=== PATIENT | male | born 1970 | race Caucasian/White ===

== ENCOUNTER 2019-01-25 17:20 | Emergency (ER) | payer OTHER ==
[2019-01-25 17:25] VITALS: BP 142/101
[2019-01-25] MEDS ORDERED: methylPREDNIS SUCC 125 MG/2ML IVP ONE (17:40)
[2019-01-25] MEDS ORDERED: FAMOTIDINE(*) 20MG/50ML PREMIX 50 ML IVPB ONE (17:40)
[2019-01-25] MEDS ORDERED: EPINEPHrine 0.3 MG SYR IM ONLY ONE (17:40)
[2019-01-25] MEDS ORDERED: diphenhydrAMINE 50 MG/ML VIAL IVP ONE (17:40)
[2019-01-25] MEDS ORDERED: NS(*) 0.9% 1000 ML BAG 1,000 ML IV ONE (17:40)
--- NOTE | 2019-01-25 18:26 | ER Report ---
History and Physical Time Seen By MD: 17:49 Hx. of Stated Complaint: PATIENT HAS THROAT AND TONGUE. PATIENT HAS SEVERE ALLERGY TO NUTS AND WAS EXPOSED TO CASHEWS AT A RESTUARANT. EPI PEN USED UPON ARRIVAL (WINDYLOLI Ramirez ) HPI/ROS CHIEF COMPLAINT: allergic reaction. HISTORY OF PRESENT ILLNESS: Pt here for nephews graduation. PT was at a green party at [employer] and did not realize that the dip was made out of cashew nuts. Pt is allergic to nuts. Immediately after have some pt began with throat tightening. Family drove pt to ED. Pt denies sob. Pt has thickened voice and states his throat feels tight and tongue feels large. Pt does not own an epi pen REVIEW OF SYSTEMS: Constitutional: No fever, no chills. Eyes: No discharge. ENT: + swelling to throat and tongue Cardiovascular: No chest pain, no palpitations. Respiratory: No cough, no shortness of breath. Gastrointestinal: No abdominal pain, no vomiting. Genitourinary: No hematuria. Musculoskeletal: No back pain. Skin: No rashes. Neurological: No headache. (WINDYLOLI Ramirez DO) Allergies: Coded Allergies: Penicillins (Verified Allergy, Severe, ANAPHALAXIS , 01/25/19) nut - unspecified (Verified Allergy, Severe, ANAPHALAXIS , 01/25/19) Home Meds Active Scripts Epinephrine (EPIPEN 2-SYBIL) 0.3 Mg/0.3 Ml Pen.injctr, 0.3 MG IM PRN PRN for ALLERGY SYMPTOMS, #1 AMRIT Prov:LOLI TEMPLE V DO 01/25/19 Prednisone (PREDNISONE) 20 Mg Tablet, 40 MG PO BID for 2 Days, #8 TAB Prov:LOLI TEMPLE V DO 01/25/19 Past Medical/Surgical History Pmhx: htn (WINDYLOLI Ashley DO) Reviewed Nurses Notes: Yes (LOLI TEMPLE DO) Hx Smoking: Yes Hx Substance Use Disorder: No Hx Alcohol Use: Yes (occasional) (WINDYLOLI Ashley DO) Constitutional Vital Sign - Last 24 Hours 01/25/19 01/25/19 01/25/19 01/25/19 17:23 17:25 17:35 17:50 Pulse 101 95 81 Resp 16 16 15 B/P (MAP) 143/104 (117) 142/101 Pulse Ox 93 93 93 O2 Delivery Room Air 01/25/19 01/25/19 01/25/19 01/25/19 18:05 18:20 18:35 19:05 Pulse 81 80 85 84 Resp 24 21 0 21 Pulse Ox 94 93 93 93 01/25/19 01/25/19 01/25/19 01/25/19 19:20 19:35 19:50 20:05 Pulse 78 91 81 79 Resp 14 31 16 21 Pulse Ox 91 93 93 93 01/25/19 01/25/19 01/25/19 01/25/19 20:20 20:35 20:40 20:55 Pulse 82 84 81 86 Resp 49 13 9 16 Pulse Ox 90 93 92 91 01/25/19 21:10 Resp 37 Pulse Ox 90 Intake and Output 01/25/19 01/25/19 01/26/19 15:00 23:00 07:00 Intake Total 1050 ml Balance 1050 ml (LIVE ROSENTHAL MD) Physical Exam General Appearance: The patient is alert, pt is able to talk but with a "thick" voice Eyes: Pupils equal and round no pallor or injection, EOMI ENT: + glossy swollen uvula that is midine, + enlarged tongue, mallinpatti 3, Mucous membranes are moist, TM are nl b/l Respiratory: There are no retractions, lungs are clear to auscultation no wheezing Cardiovascular: Regular rate and rhythm. pulses are equal and symmetrical Gastrointestinal: Abdomen is soft and non tender, no masses, bowel sounds normal, no guarding, no rigidity or rebound Neurological: Cranial nerves II-XII grossly intact, no sensory or motor loss Skin: Warm and dry, no rashes. Musculoskeletal: Neck is supple non tender, no vertebral tenderness Extremities are nontender, nonswollen and have full range of motion. DIFFERENTIAL DIAGNOSIS: After history and physical exam differential diagnosis was considered for allergic reaction (LOLI TEMPLE DO) Medical Decision Making ED Course/Re-evaluation Clinical Indication for ER IV: IV Access ED Course Epi, solumedrol, benadryl, pepcid and iv fluids started immediatley on arrival. 01/25/2019 6:30:53 pm Pt signed out to dr. Rosenthal. Decision to Disposition Date: January 25, 2019 (LOLI TEMPLE DO) ED Course I discussed this patient with Dr. Temple at shift change and assumed care. Patient with allergic reaction with angioedema. Received epinephrine, Solu- Medrol, Benadryl, and Pepcid. Starting to improve, but needs further observation here in the ER to make sure symptoms are improving. Tongue swelling gone, still with significant uvula swelling. Gave Prednisone 20mg tablets x3 and liquid benadryl. on re-evaluation later, swellilng much improved, but still present to a much lesser degree. Voice has normalized. Discharged home with instructions noted below. Decision to Disposition Date: January 25, 2019 Decision to Disposition Time: 21:00 (LIVE ROSENTHAL MD) Depart Departure Latest Vital Signs Vital Signs Date Time Temp Pulse Resp B/P (MAP) Pulse Ox O2 Delivery O2 Flow Rate FiO2 01/25/19 21:10 37 90 01/25/19 20:55 86 01/25/19 17:25 142/101 Room Air (LIVE ROSENTHAL MD) Impression: Primary Impression: Allergic reaction to tree nut Condition: Improved Disposition: HOME OR SELF-CARE New Scripts Epinephrine (EPIPEN 2-SBYIL) 0.3 Mg/0.3 Ml Pen.injctr 0.3 MG IM PRN PRN for ALLERGY SYMPTOMS, #1 AMRIT Prov: LOLI TEMPLE DO 01/25/19 Prednisone (PREDNISONE) 20 Mg Tablet 40 MG PO BID for 2 Days, #8 TAB Prov: LOLI TEMPLE DO 01/25/19 Patient Instructions: Food Allergy (ED) Additional Instructions: Benadryl 25mg every 6 hours while symptomatic Then can start using as needed. Pepcid 20mg twice a day while symptomatic, then as needed. Prednisone 40mg twice a day for 2 more days. Start tomorrow I provided you with a script for an epi pen. It is important that you carry one in case of emergencies. Return as needed. LOLI TEMPLE DO January 25, 2019 18:26 LIVE ROSENTHAL MD January 25, 2019 18:42
[2019-01-25] MEDS ORDERED: PRED20TA6 PO (18:39)
[2019-01-25] MEDS ORDERED: EPIN0.3P15 IM (18:39)
[2019-01-25] MEDS ORDERED: predniSONE 20 MG TAB PO ONE (19:15)
== END 2019-01-25 21:18 | disposition home or self-care (01) ==
LOC: ER 17:34
DX: T78.1XXA Other adverse food reactions, not elsewhere classified, initial encounter (principal)
CPT/HCPCS: 96361; 96365; 96372; 96375; 99284; J0171; J1200; J2930; J7030; J7512; Q0163